=== PATIENT | female | born 1970 | race Caucasian/White ===

== ENCOUNTER → 2020-12-06 | Outpatient (CLI) | payer BC | LOC: LAB FS 09:57 | PROVIDERS: ATTEND Emergency Medicine | DX: Z20.822 Contact with and (suspected) exposure to COVID-19 (principal) | CPT/HCPCS: 87635 ==

== ENCOUNTER → 2021-01-06 | Outpatient (CLI) | payer BC ==
--- NOTE | 2021-01-06 12:34 | Diagnostic Imaging Report ---
PROCEDURE: MRI lumbar spine. TECHNIQUE: Multiplanar, multisequence MRI of the lumbar spine was performed without contrast. INDICATION: Chronic low back pain. No prior studies are available for comparison. Curvature and alignment of the lumbar spine is normal. Vertebral body heights are maintained. Marrow signal intensity is unremarkable apart from benign hemangiolipoma within the L2 and L3 vertebral bodies. No geographic marrow lesion or evidence of acute compression fracture is seen. There is some mild disc desiccation at L4-L5 and L5-S1 levels. Conus is unremarkable at the T12 level. T12-L1: Central canal and neural foramina are widely patent. L1-L2: Central canal and neural foramina are widely patent. L2-L3: Central canal and neural foramina are widely patent. L3-L4: There is some very mild wide-based midline disc bulge indenting the ventral thecal sac. The central canal remains patent. There are some facet changes with ligamentous thickening present. Neural foramina are widely patent. L4-L5: There is some broad-based disc/osteophyte complex indenting the ventral thecal sac. The central canal, lateral recesses and neural foramina remain widely patent. L5-S1: Central canal and neural foramina are widely patent. Paraspinous tissues are unremarkable. IMPRESSION: Mild lower lumbar spondylosis. No central canal or neural foraminal stenosis is detected. Dictated by: Dictated on workstation # [id number]
== END ==
LOC: RAD 09:51
DX: M47.816 Spondylosis without myelopathy or radiculopathy, lumbar region (principal)
CPT/HCPCS: 72148

== ENCOUNTER 2021-06-10 10:48 | Outpatient (CLI) | payer BC ==
[~2021-06-10] VITALS: Ht 170.2 cm; Wt 108.9 kg
[2021-06-10 10:34] VITALS: BP 134/87
[2021-06-10] MEDS ORDERED: CASIRIVIMAB/IMDEVIMAB 1,200 MG in NS (IVPB) 250 ML IV ONE (11:15)
[2021-06-10] MEDS ORDERED: ONDANSETRON 4 MG/2 ML (SDV) Z0FRAN IV PRN (11:15)
[2021-06-10] MEDS ORDERED: ACETAMINOPHEN 500 MG TAB (TYLENOL) PO PRN (11:15)
[2021-06-10] MEDS ORDERED: EPINEPHrine INJECTION 1 MG/ML AMP IM PRN (11:15)
[2021-06-10] MEDS ORDERED: diphenhydrAMINE 50 MG/ML INJ (BENADRYL) IV PRN (11:15)
[2021-06-10 12:09] VITALS: BP 131/84
== END 2021-06-10 13:09 | disposition home or self-care (01) ==
LOC: INFUSION 10:48
PROVIDERS: ATTEND Nurse Practitioner Family
DX: Z23 Encounter for immunization (principal); U07.1 COVID-19

== ENCOUNTER → 2021-07-11 | Outpatient (CLI) | payer BC | LOC: CARD 14:30 | PROVIDERS: ATTEND Nurse Practitioner Family | DX: R00.9 Unspecified abnormalities of heart beat (principal) | CPT/HCPCS: 93306 ==

== ENCOUNTER → 2023-04-27 | Outpatient (CLI) | payer BC ==
--- NOTE | 2023-04-27 11:34 | Diagnostic Imaging Report ---
PROCEDURE: Pelvic comp/transvaginal sonogram. TECHNIQUE: Complete transabdominal and transvaginal pelvic ultrasound was performed. In addition, limited pelvic Doppler was performed. INDICATION: Pelvic pain as well as enlarged uterus. FINDINGS: Uterus is enlarged measuring 11.5 x 6.2 x 5.4 cm. Uterus is anteverted. Myometrium is heterogeneous. There appear to be fibroids present, largest in the right uterus measuring 3.3 cm. Left mid uterine fibroid measures 2.2 cm. There appears to be a small cervical nabothian cyst. Endometrium is 10 mm in thickness. Right and left ovaries cannot be visualized due to overlying bowel gas. No adnexal mass or free fluid is seen. No abnormal vascularity in the adnexa is seen with Doppler imaging. There is no free fluid. IMPRESSION: 1. Enlarged fibroid uterus. 2. Endometrial thickening for postmenopausal patient at 10 mm. Dictated by: Dictated on workstation # [id number]
== END ==
LOC: RAD 10:00
PROVIDERS: ATTEND Obstetrics & Gynecology
DX: N85.2 Hypertrophy of uterus (principal); R93.89 Abnormal findings on diagnostic imaging of other specified body structures; Z78.0 Asymptomatic menopausal state
CPT/HCPCS: 76830; 76856

== ENCOUNTER 2023-05-04 21:19 | Emergency (ER) | payer BC ==
[~2023-05-04] VITALS: Ht 170 cm; Wt 108.5 kg
[2023-05-04] MEDS ORDERED: ONDANSETRON 4 MG (ZOFRAN) ORAL DISSOLVE TAB SL STA (21:41)
[2023-05-04] MEDS ORDERED: LIDOCAINE 2% VISCOUS 15 ML UDC PO ONE (21:45)
[2023-05-04] MEDS ORDERED: ANTACID SUSP 30 ML UDC (MYLANTA) PO ONE (21:45)
[2023-05-04] MEDS ORDERED: LORazepam 0.5 MG (ATIVAN) TABLET BC STA (22:34)
--- NOTE | 2023-05-04 22:41 | ED Abdominal Pain ---
General Chief Complaint: General Problems/Pain Stated Complaint: ABD PAIN,ANXIETY Nursing Triage Note: Patient to [facility] via POV ambulatory to room 05 w c/o feeling anxious. Patient states "I can't breathe, I'm having some lots of pressure in my abdomen, and I can't quit shaking." Patient reports she is waiting on results of a biopsy from an abnormal pelvic ultrasound and the the longer she waits the worse she gets. Source of Information: Patient, Family, Old Records Exam Limitations: No Limitations History of Present Illness Date Seen by Provider: May 04, 2023 Time Seen by Provider: 21:33 Initial Comments She has been taking generic Ozempic for about 6 weeks. Allergies and Home Medications Allergies Coded Allergies: Penicillins (Verified Allergy, Unknown, 06/10/21) amoxicillin (Verified Allergy, Unknown, 06/10/21) cephalothin (Verified Allergy, Unknown, 06/10/21) Past Nhpvifp-Ocqhqy-Japtch Hx Patient Social History Tobacco Use?: No Substance use?: No Alcohol Use?: No Physical Exam Vital Signs Vital Signs - First Documented 05/04/23 21:25 Temp 35.9 Pulse 106 Resp 25 B/P (MAP) 162/81 (108) Pulse Ox 96 O2 Delivery Room Air Capillary Refill : Less Than 3 Seconds Height/Weight/BMI Height: '" Weight: lbs. oz. kg; 37.00 BMI Method: Progress/Results/Core Measures Results/Orders Lab Results Laboratory Tests Test 05/04/23 22:55 05/04/23 23:45 Range/Units White Blood Count 7.6 4.3-11.0 10^3/uL Red Blood Count 4.72 3.80-5.11 10^6/uL Hemoglobin 14.2 11.5-16.0 g/dL Hematocrit 41 35-52 % Mean Corpuscular Volume 86 80-99 fL Mean Corpuscular Hemoglobin 30 25-34 pg Mean Corpuscular Hemoglobin Concent 35 32-36 g/dL Red Cell Distribution Width 13.3 10.0-14.5 % Platelet Count 229 130-400 10^3/uL Mean Platelet Volume 9.2 9.0-12.2 fL Immature Granulocyte % (Auto) 0 % Neutrophils (%) (Auto) 68 42-75 % Lymphocytes (%) (Auto) 21 12-44 % Monocytes (%) (Auto) 9 0-12 % Eosinophils (%) (Auto) 2 0-10 % Basophils (%) (Auto) 0 0-10 % Neutrophils # (Auto) 5.2 1.8-7.8 10^3/uL Lymphocytes # (Auto) 1.6 1.0-4.0 10^3/uL Monocytes # (Auto) 0.7 0.0-1.0 10^3/uL Eosinophils # (Auto) 0.1 0.0-0.3 10^3/uL Basophils # (Auto) 0.0 0.0-0.1 10^3/uL Immature Granulocyte # (Auto) 0.0 0.0-0.1 10^3/uL Sodium Level 139 135-145 MMOL/L Potassium Level 3.6 3.6-5.0 MMOL/L Chloride Level 102 98-107 MMOL/L Carbon Dioxide Level 24 21-32 MMOL/L Anion Gap 13 5-14 MMOL/L Blood Urea Nitrogen 14 7-18 MG/DL Creatinine 0.84 0.60-1.30 MG/DL Estimat Glomerular Filtration Rate 84 BUN/Creatinine Ratio 17 Glucose Level 118 H 70-105 MG/DL Calcium Level 8.9 8.5-10.1 MG/DL Corrected Calcium 8.7 8.5-10.1 MG/DL Total Bilirubin 0.4 0.1-1.0 MG/DL Aspartate Amino Transf (AST/SGOT) 16 5-34 U/L Alanine Aminotransferase (ALT/SGPT) 17 0-55 U/L Alkaline Phosphatase 86 40-136 U/L C-Reactive Protein 0.86 H <0.50 MG/DL Total Protein 6.9 6.4-8.2 GM/DL Albumin 4.2 3.2-4.5 GM/DL Lipase 50 8-78 U/L Urine Color YELLOW Urine Clarity CLEAR Urine pH 6.0 5-9 Urine Specific [place] 1.010 L 1.016-1.022 Urine Protein NEGATIVE NEGATIVE Urine Glucose (UA) NEGATIVE NEGATIVE Urine Ketones NEGATIVE NEGATIVE Urine Nitrite NEGATIVE NEGATIVE Urine Bilirubin NEGATIVE NEGATIVE Urine Urobilinogen 0.2 < = 1.0 MG/DL Urine Leukocyte Esterase NEGATIVE NEGATIVE Urine RBC (Auto) NEGATIVE NEGATIVE Urine RBC NONE /HPF Urine WBC NONE /HPF Urine Squamous Epithelial Cells 5-10 /HPF Urine Crystals NONE /LPF Urine Bacteria FEW H /HPF Urine Casts NONE /LPF Urine Mucus NEGATIVE /LPF Urine Culture Indicated NO My Orders Orders - ANEL VENCES MD Ondansetron Oral Dissolve Tab (Zofran (05/04/23 21:41) Lidocaine 2% Viscous 15 Ml (Xylocaine Vi (05/04/23 21:45) Antacid Suspension (Mylanta Suspension (05/04/23 21:45) Cbc With Automated Diff (05/04/23 22:26) Comprehensive Metabolic Panel (05/04/23 22:26) Lipase (05/04/23 22:26) Ua Culture If Indicated (05/04/23 22:26) Crp Fs (05/04/23 22:26) Ed Iv/Invasive Line Start (05/04/23 22:26) Lorazepam Tablet (Ativan Tablet) (05/04/23 22:34) Ct Abdomen/Pelvis W (05/05/23 00:00) Iohexol Injection (Omnipaque 350 Mg/Ml 1 (05/05/23 00:15) Received Contrast (Hold Metformin- Contr (05/05/23 00:15) Ns (Ivpb) (Sodium Chloride 0.9% Ivpb Bag (05/05/23 00:15) Ondansetron Injection (Zofran Injectio (05/05/23 02:45) Pantoprazole Injection (Protonix Injecti (05/05/23 02:45) Medications Given in ED Current Medications Medications Dose Ordered Sig/Judah Route Start Time Stop Time Status Last Admin Dose Admin Al Hydrox/Mg Hydrox/Simethicone 30 ml ONCE ONCE PO 05/04/23 21:45 05/04/23 21:46 DC 05/04/23 22:11 30 ML Iohexol 100 ml ONCE ONCE IV 05/05/23 00:15 05/05/23 00:16 DC 05/05/23 00:13 80 ML Lidocaine HCl 15 ml ONCE ONCE PO 05/04/23 21:45 05/04/23 21:46 DC 05/04/23 22:11 15 ML Ondansetron HCl 4 mg ONCE ONCE IVP 05/05/23 02:45 05/05/23 02:47 DC 05/05/23 02:50 4 MG Pantoprazole 40 mg ONCE ONCE IV 05/05/23 02:45 05/05/23 02:47 DC 05/05/23 02:50 40 MG Sodium Chloride 100 ml ONCE ONCE IV 05/05/23 00:15 05/05/23 00:16 DC 05/05/23 00:14 100 ML Vital Signs/I&O 05/04/23 21:25 Temp 35.9 Pulse 106 Resp 25 B/P (MAP) 162/81 (108) Pulse Ox 96 O2 Delivery Room Air Blood Pressure Mean: 108 Progress Progress Note #1: Time: 22:37 Progress Note Patient was interviewed and examined at 2133. Her pain seemed to be focused in the epigastrium where she also had tenderness. She had reported history of acid reflux which she was treating periodically with Pepcid. A GI cocktail was ordered after pretreating with Zofran. This trial treatment did not improve her symptoms. Patient remained extremely anxious and panicked about the numbness in her mouth and throat despite being prepared for this effect and being advised not to panic about it. Patient would like to proceed with further work-up. On repeat examination she has tenderness more focused to the right of the epigastrium rather than in the epigastrium. Patient was given water to swish and spit to help resolve the oral and throat numbness from GI cocktail. Those symptoms promptly resolved. Nursing staff has attempted IV x2 without success. Patient is now being given buccal Ativan for her anxiety before proceeding with any further IV attempts. Pelvic ultrasound report from April 27 was reviewed and is noted below. Progress Note #2: Time: 00:10 Progress Note Patient has had an excellent response to the Ativan. She is now calm and relaxed. She even fell asleep for short period of time. IV was successfully established and labs were obtained, reviewed, and interpreted by me. CBC, CMP, CRP, and lipase were all completely unremarkable. Urinalysis is pending. Patient has been reevaluated multiple times since arrival. She is still experiencing some minor right upper quadrant and epigastric discomfort. We discussed options including the potential for CT scan of the abdomen and pelvis tonight. Risks and benefits were reviewed. Risks included exposure to contrast dye, radiation exposure, and cost. Benefits included further structural evaluat ion of internal structures and psychological reassurance. After reviewing risks and benefits, patient elects to have CT performed. Further care will be dictated by results of urinalysis and CT. Diagnostic Imaging Plain Films/CT/US/NM/MRI: pelvis Comments NAME: [facility] REC#: [id number] PT STATUS: REG CLI : 1970 PHYSICIAN: BART JOHNSON DO ADMIT DATE: 04/27/23/RAD Signed Date of Exam:04/27/23 US NON OB PELVIS COMP/TRANSVAG PROCEDURE: Pelvic comp/transvaginal sonogram. TECHNIQUE: Complete transabdominal and transvaginal pelvic ultrasound was performed. In addition, limited pelvic Doppler was performed. INDICATION: Pelvic pain as well as enlarged uterus. FINDINGS: Uterus is enlarged measuring 11.5 x 6.2 x 5.4 cm. Uterus is anteverted. Myometrium is heterogeneous. There appear to be fibroids present, largest in the right uterus measuring 3.3 cm. Left mid uterine fibroid measures 2.2 cm. There appears to be a small cervical nabothian cyst. Endometrium is 10 mm in thickness. Right and left ovaries cannot be visualized due to overlying bowel gas. No adnexal mass or free fluid is seen. No abnormal vascularity in the adnexa is seen with Doppler imaging. There is no free fluid. IMPRESSION: 1. Enlarged fibroid uterus. 2. Endometrial thickening for postmenopausal patient at 10 mm. Dictated by: Dictated on workstation # [id number] Dict: 04/27/23 1111 Trans: 04/27/23 1544 [id number] Interpreted by: KATHERINE NICOLE MD Electronically signed by: KATHERINE NICOLE MD 04/27/23 1544 Departure Impression Primary Impression: Right upper quadrant pain Additional Impressions: Epigastric pain Abnormal pelvic ultrasound Disposition: 01 HOME, SELF-CARE Condition: Stable Departure-Patient Inst. Decision time for Depature: 02:46 Referrals: ADAM GONZALES DO (PCP/Family) Primary Care Physician Patient Instructions: Abdominal Pain, Adult ED Add. Discharge Instructions: Start with a noncarbonated clear liquid diet and gradually advance your diet with small quantities of bland food as tolerated. Use Pepcid (famotidine) continuously twice daily for at least 2 weeks. Discuss further use with your primary care provider. Use Zofran (ondansetron) as prescribed for nausea or vomiting. Ozempic and similar medications are known for causing significant gastrointestinal adverse effects. It is possible you are experiencing a medication effect from Ozempic. Consider discontinuing this medication or working with your primary care provider to determine an alternative. Please contact your doctor to discuss as soon as possible. Consider pursuing gallbladder ultrasound if symptoms continue. Contact your primary care provider to make arrangements and obtain the order. Avoid the following: Eating large meals, eating close to bedtime, caffeine, carbonation, citrus fruits and juices, tomato products, chocolate, mints, spicy foods, fatty/greasy foods, NSAID medications such as ibuprofen or naproxen, alcohol, tobacco, and anything else you know irritate your stomach. If medication is needed for pain, use Tylenol (acetaminophen) rather than NSAID medications such as ibuprofen. Please follow-up with Dr. Johnson regarding your biopsy results. If you do not hear from the emergency room regarding your CT results by 8:00 this morning, please call to review results. Return to the ER if you have worsening symptoms despite following these instructions. All discharge instructions reviewed with patient and/or family. Voiced understanding. Scripts Ondansetron (Ondansetron Odt) 4 Mg Tab.rapdis 4 MG SL Q4H PRN for NAUSEA/VOMITING, #10 TAB Prov: ANEL VENCES MD 05/05/23 Copy Copies To 1: ADAM GONZALES DO ANEL VENCES MD May 04, 2023 22:41
[2023-05-04 23:08] LABS: BASOPHILS % (AUTO) 0 % (0-10); EOSINOPHILS # (AUTO) 0.1 10^3/uL (0.0-0.3); EOSINOPHILS % (AUTO) 2 % (0-10); HEMATOCRIT 41 % (35-52); HEMOGLOBIN 14.2 g/dL (11.5-16.0); LYMPHOCYTES # (AUTO) 1.6 10^3/uL (1.0-4.0); LYMPHOCYTES % (AUTO) 21 % (12-44); MEAN CORPUSCULAR HEMOGLOBIN 30 pg (25-34); MEAN CORPUSCULAR HGB CONC 35 g/dL (32-36); MEAN CORPUSCULAR VOLUME 86 fL (80-99); MEAN PLATELET VOLUME 9.2 fL (9.0-12.2); MONOCYTES # (AUTO) 0.7 10^3/uL (0.0-1.0); MONOCYTES % (AUTO) 9 % (0-12); NEUTROPHILS # (AUTO) 5.2 10^3/uL (1.8-7.8); NEUTROPHILS % (AUTO) 68 % (42-75); PLATELET COUNT 229 10^3/uL (130-400); WHITE BLOOD COUNT 7.6 10^3/uL (4.3-11.0)
[2023-05-04 23:30] LABS: ALBUMIN 4.2 GM/DL (3.2-4.5); BILIRUBIN,TOTAL 0.4 MG/DL (0.1-1.0); CALCIUM 8.9 MG/DL (8.5-10.1); CREATININE SERUM 0.84 MG/DL (0.60-1.30); POTASSIUM 3.6 MMOL/L (3.6-5.0); TOTAL PROTEIN 6.9 GM/DL (6.4-8.2)
[2023-05-04 23:53] LABS: BILIRUBIN,URINE NEGATIVE (NEGATIVE); CLARITY,URINE CLEAR; COLOR,URINE YELLOW; GLUCOSE, URINE (UA) NEGATIVE (NEGATIVE); KETONES,URINE NEGATIVE (NEGATIVE); LEUKOCYTE ESTERASE ,URINE NEGATIVE (NEGATIVE); NITRITE,URINE NEGATIVE (NEGATIVE); PROTEIN,URINE NEGATIVE (NEGATIVE)
[2023-05-04 23:56] LABS: BACTERIA,URINE FEW /HPF
[2023-05-05] MEDS ORDERED: NS 100 ML (IVPB) BAG IV ONE (00:15)
[2023-05-05] MEDS ORDERED: IOHEXOL 350 MG/ML 100 ML (OMNIPAQUE 350) VIAL IV ONE (00:15)
[2023-05-05] MEDS ORDERED: HOLD METFORMIN - RECEIVED CONTRAST 20 ML VIAL IV SCH (00:15)
[2023-05-05] MEDS ORDERED: PANTOPRAZOLE 40 MG (PROTONIX) VIAL IV ONE (02:45)
[2023-05-05] MEDS ORDERED: ONDANSETRON 4 MG/2 ML (SDV) Z0FRAN IVP ONE (02:45)
[2023-05-05] MEDS ORDERED: ONDA4TAB11 SL (02:52)
[2023-05-05 03:04] VITALS: BP 133/80
--- NOTE | 2023-05-05 06:36 | Diagnostic Imaging Report ---
PROCEDURE: CT abdomen and pelvis with contrast. TECHNIQUE: Multiple contiguous axial images were obtained through the abdomen and pelvis after administration of intravenous contrast. Auto Exposure Controls were utilized during the CT exam to meet ALARA standards for radiation dose reduction. All CT scans use one or more of the following dose optimizing techniques: automated exposure control, MA and/or KvP adjustment based on patient size and exam type or iterative reconstruction. INDICATION: 52-year-old female, upper abdominal pain. CORRELATION STUDY: None. FINDINGS: LOWER THORAX: Clear. LIVER: Liver length 17.4 cm. No focal lesion. GALLBLADDER: Contracted. Perhaps recent meal ingestion. No overt bile duct dilatation. SPLEEN: Unremarkable. PANCREAS: Question nodule at the preliminary interpretation appears to represent normal pancreatic tissue. No concerning mass. ADRENAL GLANDS: Unremarkable. KIDNEYS: Tiny exophytic nodule anterior right kidney favors probable cyst but incompletely characterized. No calcification. No hydronephrosis or obstruction. ABDOMINAL AORTA: Unremarkable, nonaneurysmal. GASTROINTESTINAL TRACT: No obstruction or inflammation. Normal appendix. URINARY BLADDER: Decompressed. REPRODUCTIVE: Uterus enlarged. Endometrium is thickened and somewhat irregular. 2.6 cm left ovarian cyst. Trace pelvic fluid. OSSEOUS STRUCTURES: No acute abnormality. OTHER: Tiny fat-containing umbilical hernia. IMPRESSION: 1. Negative for acute abnormality of the abdomen or pelvis. 2. Enlarged uterus as well as prominent endometrium. Correlation with patient's menstrual history. If indicated, pelvic ultrasound imaging recommended. Mildly prominent left ovarian cyst. Initial report was provided by Ta. Dictated by: Dictated on workstation # [id number]
== END 2023-05-05 03:04 | disposition home or self-care (01) ==
LOC: EDUNIT# 21:19 → ER FS 21:20
DX: R10.11 Right upper quadrant pain (principal); R10.13 Epigastric pain; R93.5 Abnormal findings on diagnostic imaging of other abdominal regions, including retroperitoneum; K21.9 Gastro-esophageal reflux disease without esophagitis; Z79.899 Other long term (current) drug therapy
CPT/HCPCS: 36415; 74177; 80053; 81000; 83690; 85025; 86141; Q9967

== ENCOUNTER → 2023-05-22 | Outpatient (CLI) | payer BC ==
[~2023-05-22] MED LIST: BACI1TAB24 PO; CETI10TA49 PO; HYDR-3817 PO; NORE-106 PO; ONDA4TAB11 SL; SOY1TABL2 PO; TIRZ5PEN SQ
--- NOTE | 2023-05-22 17:42 | Diagnostic Imaging Report ---
INDICATION: Right upper quadrant abdominal pain. Nausea and vomiting. PROCEDURE: Ultrasound abdomen complete. TECHNIQUE: Multiple real-time grayscale images were obtained of the abdomen in various projections. FINDINGS: Liver is diffusely hyperechoic consistent with hepatic steatosis. The liver is also borderline enlarged. It measures 17.4 cm in length. Portal vein shows hepatopetal flow. No focal suspicious hepatic mass is identified. There is no sonographic evidence of intra- or extra-hepatic biliary ductal dilatation. Common bile duct measures 5 mm. Gallbladder is visualized. Multiple small gallstones are noted. There is no gallbladder wall thickening or pericholecystic free fluid. Pancreas is not well visualized due to overlying bowel gas. Spleen measures 10 x 5.5 x 4.3 cm and has an otherwise unremarkable sonographic appearance. No focal splenic lesions are seen. Visualized portions of the abdominal aorta and IVC are unremarkable. There is no ascites. Both kidneys have a normal sonographic appearance. The right kidney measures 10.8 cm in length, and the left measures 9.7 cm. There is no evidence of hydronephrosis, calculus, nor mass. Focused sonographic evaluation of the patient's palpable area of concern in the left lower abdominal quadrant shows a small benign-appearing anechoic cystic structure. This is felt to correspond to ovarian cyst seen on recent CT dated 05/05/2023. Umbilical region was also imaged and shows no focal abnormality. IMPRESSION: 1. Hepatomegaly with hepatic steatosis. 2. Cholelithiasis, but no sonographic evidence of acute cholecystitis. 3. Redemonstration of left ovarian cyst. Dictated by: Dictated on workstation # [id number]
== END ==
LOC: RAD 11:29
PROVIDERS: ATTEND Nurse Practitioner Family
DX: N83.202 Unspecified ovarian cyst, left side (principal); K80.20 Calculus of gallbladder without cholecystitis without obstruction; K76.0 Fatty (change of) liver, not elsewhere classified
CPT/HCPCS: 76700

== ENCOUNTER 2023-05-23 14:36 | Outpatient (CLI) | payer BC ==
[~2023-05-23] VITALS: Ht 170.2 cm; Wt 107.3 kg
[~2023-05-23 14:36] MED LIST changes: -BACI1TAB24 PO; -CETI10TA49 PO; -HYDR-3817 PO; -NORE-106 PO; -SOY1TABL2 PO; -TIRZ5PEN SQ
[2023-05-23] MEDS ORDERED: SOY1TABL2 PO ×2 (15:24)
[2023-05-23] MEDS ORDERED: BACI1TAB24 PO ×2 (15:24)
[2023-05-23] MEDS ORDERED: CETI10TA49 PO ×2 (15:24)
[2023-05-23] MEDS ORDERED: NORE-106 PO ×2 (15:24)
[2023-05-23] MEDS ORDERED: HYDR-3817 PO ×2 (15:25)
[2023-05-23] MEDS ORDERED: TIRZ5PEN SQ ×2 (15:55)
[2023-05-24] MEDS ORDERED: HYDR-3817 PO ×2 (12:06)
== END 2023-05-23 16:03 | disposition home or self-care (01) ==
LOC: PREOP 14:36
PROVIDERS: ATTEND Surgery
DX: Z01.818 Encounter for other preprocedural examination (principal)

== ENCOUNTER 2023-05-24 11:17 | Day surgery (SDC) | payer BC ==
[2023-05-24] VITALS (14 sets, daily range): BP systolic 128–153; BP diastolic 68–81
[~2023-05-24] VITALS: Ht 170.2 cm; Wt 107.3 kg
[~2023-05-24 11:17] MED LIST changes: +BACI1TAB24 PO; +CETI10TA49 PO; +HYDR-3817 PO; +NORE-106 PO; +SOY1TABL2 PO; +TIRZ5PEN SQ
[2023-05-24] MEDS ORDERED: CLINDAMYCIN 600 MG/50 ML IVPB 50 ML IV ONE (11:30)
[2023-05-24] MEDS: LACTATED RINGERS 1,000 ML IV PRN ×2 (11:50→13:23)
[2023-05-24] MEDS ORDERED: LIDOCAINE 1% w/EPI 1:100,000 20 ML VIAL ONE (11:55)
[2023-05-24] MEDS ORDERED: MIDAZOLAM 2 MG/2 ML (VERSED) VIAL ONE ×2 (12:03→12:12)
--- NOTE | 2023-05-24 12:04 | Progress Note-Pre Operative ---
Pre-Operative Progress Note Date H&P Reviewed: May 24, 2023 Time H&P Reviewed: 12:00 History & Physical: H&P Reviewed, Patient Examed, No changes noted Pre-Operative Diagnosis: Chronic calculous cholecystitis and umbilical hernia AURORA HAINES APRN May 24, 2023 12:04
[2023-05-24] MEDS ORDERED: HYDR-3817 PO ×2 (12:06)
--- NOTE | 2023-05-24 12:07 | Discharge Inst-Surgical ---
D/C Lap Instructions-KIDO Reconcile Patient Problems Problems Reviewed?: Yes New, Converted, or Re-Newed RX: RX on Chart Follow Up Appt in 2 weeks Activity as tolerated No driving for 24 hours No driving while on pain medications Incentive Spirometry use every 2 hours while awake Regular Diet Symptoms to Report: Fever over 101 degree F, Nausea/Vomiting Infection Signs and Symptoms to report: Increased redness, Foul odor of wound, Increased drainage Bathing instructions: May shower Operative Area Clean/Dry; Keep incision clean/dry If any problems/questions: Contact your physician or go to Emergency Room AURORA HAINES APRN May 24, 2023 12:07
[2023-05-24] MEDS ORDERED: NEOSTIGMINE (BLOXIVERZ ) 1 MG/1ML 10 ML VIAL ONE (12:12)
[2023-05-24] MEDS ORDERED: dexAMETHasone INJ 10 MG/ML 1 ML VIAL ONE (12:12)
[2023-05-24] MEDS ORDERED: proPOfol 200 MG/20 ML (DIPRIVAN) VIAL IV ONE (12:12)
[2023-05-24] MEDS ORDERED: fentaNYL INJECTION 100 MCG/2 ML VIAL ONE (12:12)
[2023-05-24] MEDS ORDERED: ONDANSETRON 4 MG/2 ML (SDV) Z0FRAN ONE (12:12)
[2023-05-24] MEDS ORDERED: GLYCOPYRROLATE INJ 0.2 MG/ML 2 ML VIAL ONE (12:12)
[2023-05-24] MEDS ORDERED: LIDOCAINE PF 2% 5 ML VIAL ONE (12:12)
[2023-05-24] MEDS ORDERED: ROCURONIUM 50 MG/5 ML (ZEMURON) VIAL IV ONE (12:12)
[2023-05-24] MEDS ORDERED: MIDAZOLAM 2 MG/2 ML (VERSED) VIAL IV ONE (12:15)
[2023-05-24] MEDS ORDERED: ONDANSETRON 4 MG/2 ML (SDV) Z0FRAN IVP PRN ×2 (12:15→14:15)
[2023-05-24] MEDS ORDERED: ACETAMINOPHEN 325 MG TABLET PO PRN (12:15)
[2023-05-24] MEDS ORDERED: HYDROcodone/ACETAMINOPHEN 5 MG/325 MG TABLET PO ONE (12:15)
[2023-05-24] MEDS ORDERED: morphine INJ 10 MG/ML 1ML (SYR OR VIAL) IVP PRN (12:15)
[2023-05-24] MEDS ORDERED: LIDOCAINE 1% w/EPI 1:100,000 20 ML VIAL INJ ONE (13:37)
[2023-05-24] MEDS ORDERED: SEVOFLURANE (ULTANE) 15 ML INHAL SOLN ONE (13:44)
--- NOTE | 2023-05-24 13:58 | Progress Note-Post Operative ---
Post-Operative Progess Note Surgeon (s)/Home Appliance Tech (s) Surgeon HERSON LAYNE MD Home Appliance Tech: max scherer [employer]UITING [employer]IN[employer] Pre-Operative Diagnosis Chronic calculous cholecystitis and umbilical hernia Post-Operative Diagnosis same, reducible preperitoneal umbilical hernia Procedure & Operative Findings Date of Procedure 05/24/23 Procedure Performed/Findings laparoscopic cholecystectomy and primary umbilical hernia repair. Anesthesia Type get Estimated Blood Loss Estimated blood loss (mL): minimal Specimens/Packing Specimens Removed gallbladder HERSON LAYNE MD May 24, 2023 13:58
[2023-05-24] MEDS ORDERED: HYDROmorphone INJECTION 2 MG/ML VIAL IV ONE (14:15)
[2023-05-24] MEDS ORDERED: morphine INJ 10 MG/ML 1ML (SYR OR VIAL) IVP ONE (14:15)
[2023-05-24] MEDS ORDERED: morphine INJ 10 MG/ML 1ML (SYR OR VIAL) ONE (14:16)
--- NOTE | 2023-05-24 14:45 | Anesthesia-General Post-Op ---
General Patient Condition Mental Status/LOC: Same as Preop Cardiovascular: Satisfactory Nausea/Vomiting: Absent Respiratory: Satisfactory Pain: Controlled Complications: Absent Post Op Complications Complications None Follow Up Care/Instructions Patient Instructions None needed. Anesthesia/Patient Condition Patient Condition Patient is awake in PACU and doing well. She does have some nausea and pain, but has been medicated for both. She has stable vital signs, no apparent adverse anesthesia problems. No complications reported per nursing. THUY FELICIANO DO May 24, 2023 14:45
[2023-05-24] MEDS ORDERED: HYDROcodone/ACETAMINOPHEN 5 MG/325 MG TABLET ONE (15:43)
--- NOTE | 2023-05-24 20:25 | OPERATIVE REPORT ---
DATE OF SERVICE: 05/24/2023 ATTENDING PRIMARY CARE PHYSICIAN: Kade William DO PREOPERATIVE DIAGNOSES: Symptomatic chronic calculous cholecystitis, symptomatic reducible umbilical hernia. POSTOPERATIVE DIAGNOSES: Multiple small gallstones. Small umbilical hernia 1.5cm with preperitoneal fat within the hernia sac. PROCEDURE: Laparoscopic cholecystectomy and primary umbilical hernia repair. SURGEON: Herson Layne MD EXPERIENCED TRUCK DRIVER: Del Huizar APRN ANESTHESIA: General endotracheal. ESTIMATED BLOOD LOSS: Minimal. FINDINGS: Multiple small gallstones. Small umbilical hernia with preperitoneal fat within the hernia sac. DISPOSITION: The patient tolerated the procedure well. INDICATIONS: The patient is a 52-year-old female who was referred over to us for epigastric and right upper abdominal quadrant pain with radiation towards the back. She noticed this approximately 3 months ago and this has worsened over the past month. She also does report some episodes of reflux and is currently on Pepcid. She states that she has had some issues with constipation in the past several days as well. She also states that after eating a meal, she will feel abdominal bloating as well as the discomfort. She did have the abdominal pain and did present to the Emergency Department approximately 2 weeks ago and underwent a CT scan, which did show an enlarged uterus as well as a prominent endometrial lining, and left ovarian cyst. Uterine fibroid was also identified. There was also gallstones identified on the CT scan and this was followed by an ultrasound, which did confirm gallstones. Upon examination, she did have pain in the right upper abdominal quadrant as well as in the umbilical region where a reducible hernia was identified; however, tender to palpation. DESCRIPTION OF PROCEDURE: The patient was brought to the operating room, laid supine on the table. After general endotracheal intubation, the abdomen was prepped and draped in standard surgical fashion. A 0.5% Marcaine with epinephrine was used to anesthetize the overlying skin in the left upper abdominal quadrant, which was applied to the medial aspect of the incision for retraction and a Veress needle inserted with low opening pressure of 0 mmHg and the abdomen was then insufflated to 15 mmHg pressure. The Veress needle removed and a 5 mm XL trocar placed followed by a 5 mm 45-degree angle laparoscope visualized the peritoneal cavity. A 4-quadrant abdominal exploration was performed. There were omental adhesions towards the fundus of the gallbladder. There was no gallbladder wall thickening. There was a small umbilical hernia identified with preperitoneal fat within the hernia sac. Under direct visualization, we then proceeded to place the 10 mm port through the umbilical defect under direct visualization after the skin and peritoneal lining were anesthetized using 0.5% Marcaine with epinephrine and a transverse skin incision made using a #15 blade. In a similar manner, a right upper abdominal quadrant 5 mm port was placed. The patient was then placed in reverse Trendelenburg position as planed right side up, left side down. The fundus of gallbladder was then retracted anteriorly and superiorly. The hepatoduodenal ligament was then dissected using blunt dissection as well as electrocautery, identifying the entire critical view of safety, including the triangle of Calot well as the cystic duct and artery as the only 2 structures going into the gallbladder as well as the cystic plate behind the proximal gallbladder. A timeout was then taken and the cystic duct and artery were then clipped proximally and distally and cut with EndoShears. The gallbladder was then dissected off of the liver bed using cautery on the hook instrument with visualization of good hemostasis as well as no leaking ducts of Luschka. The gallbladder was removed through the 10 mm port site using an EndoCatch bag. We then decided to proceed with primary repair of the small umbilical hernia where the defect was only approximately 1-1.5 cm in size. Using a Prashant-Janis device at the lateral corners, 0 Vicryl sutures were placed for retraction. We then proceeded to place a horizontal line of 2-0 Prolene interrupted sutures approximating the fascia completely with visualization of good hemostasis. The abdomen was desufflated and the remaining ports were removed. All skin incisions were closed using 4-0 Monocryl running subcuticular sutures. Wounds were then cleaned and covered with Dermabond. The umbilicus was then covered with tonsil sponges followed by 4 x 4 gauze followed by a large Op-Site. The patient tolerated the procedure well. We will start IV normal pain medication as well as a clear liquid diet. Once she is tolerating clears, has good pain control with oral pain medications, ambulating well, we will discharge her home where she will be instructed to do no heavy lifting or exertion for the next 2 weeks and even after 2 weeks, not to proceed with heavy lifting and exertion and to slowly incorporate more activity more in a gradual stepwise fashion until 6 weeks. Job ID: [id number] DocumentID: [id number] Dictated Date: 05/24/2023 13:52:45 Needle Board Repairer Date: 05/24/2023 20:23:00 Dictated By: HERSON LAYNE MD [facility] [place] [facility]
== END 2023-05-24 17:20 | disposition home or self-care (01) ==
LOC: SDC 11:17
PROVIDERS: ATTEND Surgery
DX: K80.10 Calculus of gallbladder with chronic cholecystitis without obstruction (principal); K42.9 Umbilical hernia without obstruction or gangrene; K66.0 Peritoneal adhesions (postprocedural) (postinfection); K21.00 Gastro-esophageal reflux disease with esophagitis, without bleeding; E66.9 Obesity, unspecified; Z68.37 Body mass index [BMI] 37.0-37.9, adult; Z28.310 Unvaccinated for COVID-19
CPT/HCPCS: 84703; 87081

== ENCOUNTER 2023-06-11 05:27 | Outpatient (CLI) | payer BC ==
[~2023-06-11] VITALS: Ht 170.2 cm; Wt 107.3 kg
[2023-06-12] MEDS ORDERED: BACI1TAB24 PO (09:53)
[2023-06-12] MEDS ORDERED: [UNRECOGNIZED DRUG - CODE] PO (09:53)
[2023-06-12] MEDS ORDERED: CETI10CA PO (09:53)
[2023-06-12] MEDS ORDERED: CBD OIL SL (09:53)
== END 2023-06-12 10:21 | disposition home or self-care (01) ==
LOC: PREOP 05:27
PROVIDERS: ATTEND Obstetrics & Gynecology
DX: Z01.818 Encounter for other preprocedural examination (principal)

== ENCOUNTER 2023-07-09 05:27 | Outpatient (CLI) | payer BC ==
[~2023-07-09] VITALS: Ht 170.2 cm; Wt 104.5 kg
[~2023-07-09 05:27] MED LIST changes: +CBD OIL SL; +CETI10CA PO; +[UNRECOGNIZED DRUG - CODE] PO
[2023-07-09] MEDS ORDERED: ONDA4TAB11 SL (10:14)
== END 2023-07-09 10:34 | disposition home or self-care (01) ==
LOC: PREOP 05:27
PROVIDERS: ATTEND Obstetrics & Gynecology
DX: Z01.818 Encounter for other preprocedural examination (principal)

== ENCOUNTER → 2023-08-10 | Outpatient (CLI) | payer BC ==
[~2023-08-10] MED LIST changes: +HOLD METFORMIN - RECEIVED CONTRAST 20 ML VIAL IV SCH; +IBUP-1780 PO; +IOHEXOL 350 MG/ML 100 ML (OMNIPAQUE 350) VIAL IV ONE; +NS 100 ML (IVPB) BAG IV ONE
--- NOTE | 2023-08-10 09:40 | Diagnostic Imaging Report ---
EXAMINATION: CT abdomen and pelvis with intravenous contrast. TECHNIQUE: Multiple contiguous axial images were obtained through the abdomen and pelvis after the uneventful administration of intravenous contrast. All CT scans use one or more of the following dose optimizing techniques: automated exposure control, MA and/or KvP adjustment based on patient size and exam type or iterative reconstruction. HISTORY: Abdominal pain COMPARISON: 05/05/2023 FINDINGS: Lung bases: The lung bases are clear. Solid organs: The liver is normal without focal lesion. The gallbladder is surgically absent. There is no biliary ductal dilation. Pancreas is normal. Spleen is normal. Adrenal glands are normal. The kidneys are normal without hydronephrosis. Bowel: The stomach and small bowel are normal without obstruction. The colon is normal. The appendix is normal. Peritoneum: There is no intraperitoneal free fluid or free air. No suspicious lymphadenopathy. Vasculature: Normal without aneurysm. Musculoskeletal: No suspicious osseous lesion or compression fracture. Pelvis: The uterus is surgically absent. No adnexal mass. The urinary bladder is normal. IMPRESSION: 1. No acute abnormality in the abdomen or pelvis. Dictated by: Dictated on workstation # [id number]
== END ==
LOC: RAD 08:39
PROVIDERS: ATTEND Obstetrics & Gynecology
DX: R10.84 Generalized abdominal pain (principal)
CPT/HCPCS: 74177